=== PATIENT | female | born 1985 | race Caucasian/White ===

== ENCOUNTER 2017-10-27 15:08 | Emergency (ER) | payer BC ==
[2017-10-27] MEDS ORDERED: Bacitracin/Neomycin/Polymyxin B Oint 0.9 GM U/D Packet ONE (16:09)
--- NOTE | 2017-10-27 16:13 | EDM.PDOC ---
ED HPI GENERAL MEDICAL PROBLEM - General Chief Complaint: Laceration Stated Complaint: RIGHT 4TH DIGIT LACERATION Time Seen by Provider: 10/27/17 15:21 Source of Information: Reports: Patient History Limitations: Reports: No Limitations - History of Present Illness INITIAL COMMENTS - FREE TEXT/NARRATIVE: Right finger laceration sustained while hanging onto a cattle gate when cow kicked the gate. Single laceration. No loss of function. No other complaints. Tetanus updated 2017. 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 ED EXAM, SKIN/RASH Exam: See Below Exam Limited By: No Limitations General Appearance: Alert, WD/WN, No Apparent Distress Eye Exam: Bilateral Eye: EOMI, PERRL Head: Atraumatic, Normocephalic Neck: Supple Respiratory/Chest: No Respiratory Distress Extremities: Normal Range of Motion, Non-Tender, Normal Capillary Refill Neurological: Alert, Oriented, Normal Cognition, Normal Gait, No Motor/Sensory Deficits Psychiatric: Normal Affect, Normal Mood Skin: Warm, Dry, Other (single 1cm laceration near distal IP joint ventrally right 4th digit. No active bleeding. Tendon function intact. NVI. ) ED SKIN PROCEDURES - Laceration/Wound Repair Right 4th finger Appearance: Subcutaneous, Clean Distal NVT: Neuro & Vascular Intact, No Tendon Injury Anesthetic Type: Local Local Anesthesia - Lidocaine (Xylocaine): 1% Plain Local Anesthetic Volume: 1cc Skin Prep: Saline Exploration/Debridement/Repair: Wound Explored, In a Bloodless Field, Explored to Base, No Foreign Material Found Suture Size: 4-0 # of Sutures: 3 Suture Type: Prolene, Interrupted Sterile Dressing Applied: Nurse Tetanus Status Addressed: Yes Complications: No Course - Vital Signs Last Recorded V/S: Last Vital Signs Temp Pulse 71 10/27/17 16:02 Resp 15 10/27/17 16:02 BP 114/65 10/27/17 16:02 Pulse Ox 99 10/27/17 16:02 - Orders/Labs/Meds Meds: Medications Discontinued Medications Generic Name Dose Route Start Last Admin Trade Name Radha PRN Reason Stop Dose Admin Lidocaine HCl 5 ml 10/27/17 15:51 10/27/17 16:08 Xylocaine-Mpf 1% INJECT 10/27/17 15:52 5 ml ONETIME ONE Administration Neomycin/Polymyxin/Bacitracin Confirm 10/27/17 16:09 Triple Antibiotic Oint Administered 10/27/17 16:10 Dose 1 each .ROUTE .STK-MED ONE - Re-Assessments/Exams Free Text/Narrative Re-Assessment/Exam: 10/27/17 16:12 Laceration repaired. Wound care reviewed. Departure - Departure Time of Disposition: 16:12 Disposition: Home, Self-Care 01 Condition: Good Clinical Impression: Laceration of finger, right Qualifiers: Encounter type: initial encounter Finger: ring finger Damage to nail status: without damage Foreign body presence: without foreign body Qualified Code(s): S61.214A - Laceration without foreign body of right ring finger without damage to nail, initial encounter - Discharge Information Instructions: Laceration Care, Adult, [id number] Forms: ED Department Discharge Additional Instructions: Wound care as discussed. Follow up as needed if problems such as signs of infection develop. Sutures out next Sunday.
== END 2017-10-27 16:40 | disposition home or self-care (01) ==
LOC: LL.ED 15:08
DX: S61.214A Laceration without foreign body of right ring finger without damage to nail, initial encounter (principal); Z79.899 Other long term (current) drug therapy; W55.22XA Struck by cow, initial encounter
CPT/HCPCS: 12001; 99282